=== PATIENT | female | born 1995 | race Hispanic/Latino ===

== ENCOUNTER 2017-08-10 16:37 | Emergency (ER) | payer SELFPAY ==
[2017-08-10 16:44] VITALS: BP 150/79; PULSE 153; RESP 18; TEMP 101.5; O2SAT 99
--- NOTE | 2017-08-10 17:26 | ED PDOC ---
HPI: CCC, URI, Sore Throat Time Seen by Provider: 08/10/17 16:56 Chief Complaint (Nursing): Fever Chief Complaint (Provider): Soar throat, fever History Per: Patient History/Exam Limitations: no limitations Onset/Duration Of Symptoms: Days (3) Current Symptoms Are (Timing): Still Present Location Of Pain: Throat Associated Symptoms: Fever, Sore Throat, Cough. denies: Sputum Additional Complaint(s): Patient is a 22 y/o female presents to the ED complaining of sore throat and fever x3 day, with associated occasional nonproductive cough. She denies associated shortness of breath. Patient offers no additional medical complaints. PCP: Erika Alex Past Medical History Reviewed: Historical Data, Nursing Documentation, Vital Signs Vital Signs: Last Vital Signs Temp 101.5 F H 08/10/17 16:40 Pulse 153 H 08/10/17 16:40 Resp 18 08/10/17 16:40 BP 150/79 08/10/17 16:40 Pulse Ox 99 08/10/17 17:32 - Medical History PMH: No Chronic Diseases, Gastritis - Surgical History Surgical History: No Surg Hx - Family History Family History: States: No Known Family Hx - Immunization History Hx Tetanus Toxoid Vaccination: No Hx Influenza Vaccination: No Hx Pneumococcal Vaccination: No - Home Medications Home Medications: Ambulatory Orders Medication Instructions Recorded Acetaminophen with Codeine 2 tab PO Q4H PRN #22 tab 02/23/16 [Tylenol with Codeine No. 3 300 mg-30 mg] Doxycycline Hyclate 100 mg PO BID #28 tablet 02/23/16 Naproxen [Naprosyn] 1 tab PO BID PRN #60 tab 02/23/16 metroNIDAZOLE [Flagyl] 500 mg PO BID #28 tab 02/23/16 Azithromycin [Zithromax] 250 mg PO DAILY #6 tab 08/10/17 - Allergies Allergies/Adverse Reactions: Allergies Allergy/AdvReac Type Severity Reaction Status Date / Time No Known Allergies Allergy Verified 11/07/15 11:13 Review of Systems ROS Statement: Except As Marked, All Systems Reviewed And Found Negative Constitutional: Positive for: Fever ENT: Positive for: Throat Pain Respiratory: Positive for: Cough. Negative for: Shortness of Breath, Sputum Physical Exam - Reviewed Nursing Documentation Reviewed: Yes Vital Signs Reviewed: Yes - Physical Exam Appears: Positive for: No Acute Distress Head Exam: Positive for: ATRAUMATIC, NORMOCEPHALIC ENT: Positive for: TM Is/Are (clear bilaterally), Pharyngeal Erythema. Negative for: Tonsillar Exudate, Tonsillar Swelling Neck: Positive for: Supple Cardiovascular/Chest: Positive for: Regular Rate, Rhythm Respiratory: Positive for: Normal Breath Sounds. Negative for: Rales, Rhonchi, Wheezing - ECG O2 Sat by Pulse Oximetry: 99 (RA) Pulse Ox Interpretation: Normal Medical Decision Making Medical Decision Making: Time: 1700 Initial Impression: 22 year old female presents with cough and fever for past 3 dys Initial Plan: Tylenol 650mg PO Rapid Strep Scribe Attestation: Documented by Radha Rodriguez, acting as a scribe for Geoff Lipscomb MD Provider Scribe Attestation: All medical record entries made by the Scribe were at my direction and personally dictated by me. I have reviewed the chart and agree that the record accurately reflects my personal performance of the history, physical exam, medical decision making, and the department course for this patient. I have also personally directed, reviewed, and agree with the discharge instructions and disposition. Disposition - Clinical Impression Clinical Impression: Pharyngitis - Disposition Referrals: [facility] [Outside] Disposition: Routine/Home Disposition Time: 17:10 Condition: FAIR Prescriptions: Azithromycin [Zithromax] 250 mg PO DAILY #6 tab Instructions: Pharyngitis (ED) Forms: [employer] (Thai)
== END 2017-08-10 17:15 | disposition home or self-care (01) ==
LOC: H.ER 16:37
DX: J02.9 Acute pharyngitis, unspecified (principal)

== ENCOUNTER 2018-06-13 10:18 | Emergency (ER) | payer SELFPAY ==
[2018-06-13 10:21] VITALS: BMI 23.2
[2018-06-13 10:22] VITALS: BP 128/72; PULSE 102; RESP 18; TEMP 98.8; O2SAT 99
--- NOTE | 2018-06-13 10:51 | ED PDOC ---
HPI: CCC, URI, Sore Throat Time Seen by Provider: 06/13/18 10:28 Chief Complaint (Nursing): ENT Problem Chief Complaint (Provider): sore throat History Per: Patient Additional Complaint(s): 23-year-old female presents with sore throat for 3 days associated with tactile fever. Patient has mild left ear pain as well but denies any cough or congestion. She has mild nausea with no vomiting. Patient is tolerating liquids and solids but has pain when swallowing. PMD: [facility] Past Medical History Reviewed: Historical Data, Nursing Documentation, Vital Signs Vital Signs: Last Vital Signs Temp 98.8 F 06/13/18 10:21 Pulse 102 H 06/13/18 10:21 Resp 18 06/13/18 10:21 BP 128/72 06/13/18 10:21 Pulse Ox 99 06/13/18 10:51 - Medical History PMH: Gastritis - Surgical History Surgical History: Endoscopy - Family History Family History: States: No Known Family Hx - Living Arrangements Living Arrangements: With Family - Social History Current smoker - smoking cessation education provided: No Alcohol: None Drugs: Denies - Home Medications Home Medications: Ambulatory Orders Medication Instructions Recorded Acetaminophen with Codeine 2 tab PO Q4H PRN #22 tab 02/23/16 [Tylenol with Codeine No. 3 300 mg-30 mg] Doxycycline Hyclate 100 mg PO BID #28 tablet 02/23/16 Naproxen [Naprosyn] 1 tab PO BID PRN #60 tab 02/23/16 metroNIDAZOLE [Flagyl] 500 mg PO BID #28 tab 02/23/16 Azithromycin [Zithromax] 250 mg PO DAILY #6 tab 08/10/17 Amoxicillin/Clavulanate [Augmentin 1 tab PO BID #14 tab 06/13/18 875 MG-125 MG] Ibuprofen [Motrin] 600 mg PO Q6 PRN #15 tab 06/13/18 - Allergies Allergies/Adverse Reactions: Allergies Allergy/AdvReac Type Severity Reaction Status Date / Time shrimp Allergy RASH Verified 06/13/18 10:33 Review of Systems ROS Statement: Except As Marked, All Systems Reviewed And Found Negative Constitutional: Positive for: Fever (tactile). Negative for: Chills ENT: Positive for: Ear Pain, Throat Pain Cardiovascular: Negative for: Chest Pain Respiratory: Negative for: Cough Gastrointestinal: Positive for: Nausea. Negative for: Vomiting, Abdominal Pain , Diarrhea Physical Exam - Reviewed Nursing Documentation Reviewed: Yes Vital Signs Reviewed: Yes - Physical Exam Appears: Positive for: Well, Non-toxic, No Acute Distress Skin: Positive for: Normal Color. Negative for: Rash Eye Exam: Positive for: Normal appearance ENT: Positive for: TM Is/Are (Normal bilaterally), Other (Bilateral tonsillar edema, erythema and exudate, uvula midline with mild edema, airway patent). Negative for: Nasal Congestion Neck: Positive for: Normal Cardiovascular/Chest: Positive for: Regular Rate, Rhythm Respiratory: Positive for: Normal Breath Sounds. Negative for: Wheezing, Respiratory Distress Neurologic/Psych: Positive for: Alert, Oriented - ECG O2 Sat by Pulse Oximetry: 99 Pulse Ox Interpretation: Normal Medical Decision Making Medical Decision Makin-year-old female with tonsillitis. Plan: test PO motrin IM decadron Throat culture Patient given prescription for Augmentin and Motrin. Advised fluids, rest and follow-up with primary doctor in 2-3 days. Disposition - Clinical Impression Clinical Impression: Tonsillitis - Patient ED Disposition Is Patient to be Admitted: No Counseled Patient/Family Regarding: Studies Performed, Diagnosis, Need For Followup, Rx Given - Disposition Referrals: [facility] [Outside] Disposition: Routine/Home Disposition Time: 11:20 Condition: STABLE Additional Instructions: Take prescription meds as directed. Drink plenty of fluids and get plenty of rest. Follow-up with clinic in 2-3 days. Prescriptions: Amoxicillin/Clavulanate [Augmentin 875 MG-125 MG] 1 tab PO BID #14 tab Ibuprofen [Motrin] 600 mg PO Q6 PRN #15 tab PRN Reason: Pain, Moderate (4-7) Instructions: Sore Throat, Adult (DC) Forms: [employer] (Samoan)
[2018-06-13] MEDS ORDERED: Dexamethasone 4 mg/1 ml IM STA (11:19)
== END 2018-06-13 11:36 | disposition home or self-care (01) ==
LOC: H.ER 10:18
DX: J03.90 Acute tonsillitis, unspecified (principal); R50.9 Fever, unspecified
CPT/HCPCS: 81025; 87070; 96372; 99283; J1100